=== PATIENT | male | born 1975 | race Caucasian/White ===

== ENCOUNTER 2023-04-11 15:21 | Outpatient (OUT) | payer BC, SELFPAY ==
--- NOTE | 2023-04-11 15:30 | XR_ITS ---
The [address] [address] Patient Name: MICHA PEREZ MRN: [id number] date: 1975 Sex: M Assigned Patient Location: [facility] Current Patient Location: [facility] Accession/Order Number: [id number] Exam Date: 04/11/2023 15:36 Report Date: 04/13/2023 09:17 At the request of: REYNA NEFF Procedure: XR lumbar spine 2-3V EXAMINATION: XR lumbar spine 2-3V HISTORY: Acute Myofascial Strain Lumbar Region S39.012A ; chronic lumbar pain COMPARISON: No relevant comparison available. FINDINGS: BONES: No significant spondylosis, scoliosis, fracture, or visible bony lesion. DISC SPACES: No significant disc height narrowing, subluxation, or endplate abnormality. PARASPINOUS: Negative. No paraspinous abnormality is seen. OTHER: Negative. XR/XR lumbar spine 2-3V IMPRESSION: 1. No acute bone abnormality. 2. No appreciable significant degenerative changes. Electronically authenticated by: MADDIE KENYON Date: 04/13/2023 09:17
== END 2023-04-11 15:22 | disposition home or self-care (01) ==
LOC: RAD 15:25
PROVIDERS: PCP Family Medicine; Visit Provider Family Medicine
DX: S39.012A Strain of muscle, fascia and tendon of lower back, initial encounter (principal)
CPT/HCPCS: 72100

== ENCOUNTER 2023-04-28 06:24 | Emergency (ER) | payer BC, SELFPAY ==
[2023-04-28 06:27] VITALS: BP 138/90; PULSE 85; RESP 16; TEMP 36.6; O2SAT 96; BMI 29.5
--- NOTE | 2023-04-28 06:32 | PC.NURSE ---
Pt reports straining back 3 weeks ago, has been on muscle relaxants and completed imaging that was negative. Pain resolved with rests and medications. Pt strained back last night while reaching for object, cannot manage pain at home.
--- NOTE | 2023-04-28 06:48 | CT_ITS ---
The [address] [address] Patient Name: MICHA PEREZ MRN: [id number] date: 1975 Sex: M Assigned Patient Location: [facility] Current Patient Location: [facility] Accession/Order Number: [id number] Exam Date: 04/28/2023 07:05 Report Date: 04/28/2023 08:02 At the request of: CRISSY WILLOUGHBY Procedure: CT thoracic spine wo con CT scan thoracic spine 04/28/2023. HISTORY: The patient woke up with mid thoracic back pain this morning. The patient injured the lower back 3 weeks ago. COMPARISON: None. TECHNIQUE: Multiple contiguous axial CT images of the thoracic spine were obtained without contrast. Sagittal and coronal reformatted images were made. Dose reduction techniques were achieved by using automated exposure control and/or adjustment of mA and/or kV according to patient size and/or use of iterative reconstruction technique. FINDINGS: No compression fracture or subluxation is seen. There is mild to moderate multilevel discogenic disease at the T4-T5 level through the T11-T12 level with disc space narrowing, osteophyte formation anteriorly and multiple Schmorl's node deformities. No significant disc protrusion, spinal canal stenosis, or foraminal narrowing is seen. There is a mild rightward curvature of the thoracic spine. CT/CT thoracic spine wo con IMPRESSION: 1. No compression fracture, subluxation, or significant spinal canal stenosis of the thoracic spine is seen. 2. Mild to moderate multilevel discogenic disease of the thoracic spine. Electronically authenticated by: DAVID BLACK Date: 04/28/2023 08:02
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
[2023-04-28] MEDS: ONDANSETRON PF 4 MG/2 ML VIAL IV (07:12)
[2023-04-28] MEDS: KETOROLAC TROMETHAMINE 30 MG/ML VIAL IVP (07:12)
[2023-04-28] MEDS: 0.9 % SODIUM CHLORIDE 1,000 ML 1000 ML IV (07:13)
[2023-04-28] MEDS: DIAZEPAM 5 MG/ML - 2 ML INJ SYRINGE IM (07:13)
[2023-04-28] MEDS: MORPHINE SULFATE 4 MG/ML VIAL IV (07:13)
[2023-04-28 07:15] LABS: D Dimer <0.19 mg/L FEU (<=0.59)
[2023-04-28 07:33] VITALS: PULSE 72; O2SAT 96
[2023-04-28 07:50] VITALS: PULSE 73; O2SAT 97
[2023-04-28 08:11] VITALS: PULSE 63; O2SAT 99
--- NOTE | 2023-04-28 08:32 | ED.BACK1 ---
HPI - Back Pain/Injury General Chief Complaint: Back Pain/Injury Stated Complaint: back pain Time Seen by Provider: 04/28/23 06:33 Source: patient Mode of arrival: walk-in History of Present Illness HPI Narrative: the patient was initially seen by Dr. Escobedo and signed out to me after discussing the case with her thoroughly. Please see her full history and physical exam. Related Data Previous Rx's Medication Instructions Recorded acetaminophen 300 mg-codeine 30 mg 1 tab PO Q6H PRN pain #20 tabs 04/28/23 tablet baclofen 10 mg tablet 5 mg PO TID PRN muscle spasm #20 04/28/23 tabs Allergies Allergy/AdvReac Type Severity Reaction Status Date / Time No Known Drug Allergies Allergy Verified 04/28/23 06:30 PFSH PFSH Social History Smoking status: Current some day smoker Exam Constitutional Vital Signs, click to edit/add: Last Vital Signs Temp 97.9 F 04/28/23 06:27 Pulse 63 04/28/23 08:11 Resp 16 04/28/23 06:27 BP 138/90 04/28/23 06:27 Pulse Ox 99 04/28/23 08:11 O2 Del Method Room Air 04/28/23 06:27 Course Vital Signs Vital signs: Vital Signs Temperature 97.9 F 04/28/23 06:27 Pulse Rate 85 04/28/23 06:27 Respiratory Rate 16 04/28/23 06:27 Blood Pressure 138/90 04/28/23 06:27 Pulse Oximetry 96 04/28/23 06:27 Oxygen Delivery Method Room Air 04/28/23 06:27 Temperature 97.9 F 04/28/23 06:27 Pulse Rate 63 04/28/23 08:11 Respiratory Rate 16 04/28/23 06:27 Blood Pressure 138/90 04/28/23 06:27 Pulse Oximetry 99 04/28/23 08:11 Oxygen Delivery Method Room Air 04/28/23 06:27 MDM - Back Pain/Injury MDM Narrative Medical decision making narrative: d-dimer is negative and CT C-spine does not show any acute findings. He is feeling improved and is able to be discharged home. Treatment diagnosis and follow-up were discussed with the patient. Differential Diagnosis Differential diagnosis: Likely thoracic back pain and other (compression fracture, muscle strain) Lab Data Attestation: I reviewed the patient's lab results. Labs: Lab Results 04/28/23 Range/Units 06:54 D-Dimer <0.19 (<=0.59) mg/L FEU Imaging Data CT C-spine: Radiologist's impression: Procedure: CT thoracic spine wo con CT scan thoracic spine 04/28/2023. HISTORY: The patient woke up with mid thoracic back pain this morning. The patient injured the lower back 3 weeks ago. COMPARISON: None. TECHNIQUE: Multiple contiguous axial CT images of the thoracic spine were obtained without contrast. Sagittal and coronal reformatted images were made. Dose reduction techniques were achieved by using automated exposure control and/or adjustment of mA and/or kV according to patient size and/or use of iterative reconstruction technique. FINDINGS: No compression fracture or subluxation is seen. There is mild to moderate multilevel discogenic disease at the T4-T5 level through the T11-T12 level with disc space narrowing, osteophyte formation anteriorly and multiple Schmorl's node deformities. No significant disc protrusion, spinal canal stenosis, or foraminal narrowing is seen. There is a mild rightward curvature of the thoracic spine. IMPRESSION: 1. No compression fracture, subluxation, or significant spinal canal stenosis of the thoracic spine is seen. 2. Mild to moderate multilevel discogenic disease of the thoracic spine. Electronically authenticated by: DAVID BLACK Date: 04/28/2023 08:02 Discharge Plan Discharge Chief Complaint: Back Pain/Injury Clinical Impression: Acute midline thoracic back pain Patient Disposition: Home, Self-Care Time of Disposition Decision: 08:29 Condition: Good Mode of Transportation: Private Vehicle Prescriptions / Home Meds: New acetaminophen-codeine 300-30 mg tablet 1 tab PO Q6H PRN (Reason: pain) Qty: 20 0RF baclofen 10 mg tablet 5 mg PO TID PRN (Reason: muscle spasm) Qty: 20 0RF Instructions: Thoracic Pain (ED), Back Pain (ED) Stand Alone Forms: Portal Instructions Referrals: REYNA NEFF [Primary Care Provider] - 1 week
[2023-04-28 08:40] VITALS: BP 117/79; PULSE 72; RESP 16; O2SAT 97
== END 2023-04-28 08:45 | disposition home or self-care (01) ==
PROVIDERS: Emergency Medicine; Emergency Provider Emergency Medicine; PCP Family Medicine
DX: M54.6 Pain in thoracic spine (principal); F17.210 Nicotine dependence, cigarettes, uncomplicated; Z86.16 Personal history of COVID-19
CPT/HCPCS: 36415; 72128; 85378; 96372; 96374; 96375; 99284

== ENCOUNTER 2023-08-12 18:12 | Emergency (ER) | payer BC, SELFPAY ==
[2023-08-12] VITALS (11 sets, daily range): BP systolic 106–118; BP diastolic 63–73; PULSE 76–96; RESP 8–20; TEMP 37.7; O2SAT 95–100; BMI 29.5
--- OUTSIDE RECORDS SUMMARY | 2023-08-12 18:20 | XMS_ITS | CCD ---
Author Name Unknown Address [address] [place] [address] Organization [facility] Care Team Providers Care Clinical Research Tech Name Role Phone REYNA NEFF Consulting Unavailable REYNA NEFF Attending Unavailable REYNA NEFF Admitting Unavailable REYNA NEFF Primary Care Unavailable [place] Unavailable Unavailable Primary Care Provider UnavailMARJAN Gaitan Attending Unavailable DENVER VICTORIA Attending Unavailable Medications Current Medications Medication Drug Class(es) Dates Sig (Normalized) Sig (Original) methylPREDNISolone 4 mg oral tablet (1 source) Corticosteroid Start: methylPREDNISolone 4 MG as directed Orally Nov, Active Completed/Discontinued Medications Medication Drug Class(es) Dates Sig (Normalized) Sig (Original) acetaminophen 300 mg / codeine phosphate 30 mg oral tablet (1 source) Opioid Agonist Start: 04-28-2023 acetaminophen-codei ne (TYLENOL-COD #3) 300-30 mg per tablet baclofen 5 mg oral tablet (1 source) gamma-Aminobutyric Acid-ergic Agonist Start: 04-28-2023 End: 05-02-2023 baclofen 5 mg tablet cyclobenzaprine hydrochloride 5 mg oral tablet (1 source) Muscle Relaxant Start: 05-02-2023 take 1 tablet by mouth at bedtime as needed cyclobenzaprine (FLEXERIL) 5 mg tablet Indications: Acute thoracic back pain, unspecified back pain laterality Take 1 tablet by mouth at bedtime as needed. 5 tablet 0 05/02/2023 Active Comment on above: Take 1 tablet by quentin th at bedtime as needed. triamcinolone acetonide 10 mg/ml injectable suspension (1 source) Corticosteroid Start: 12-17-2021 Kenalog Nov, 60 mg Problems Active Problems Problem Classification Problem Date Documented Date Episodic/Chronic Disorders of lipid metabolism (1 source) Hyperlipidemia; Translations: [Hyperlipidemia] Chronic Headache; including migraine (1 source) Headache; including migraine; Translations: [HEADACHE UNSPECIFIED] Onset: 05-01-2020 Immunizations and screening for infectious disease (3 sources) Contact with and (suspected) exposure to other viral communicable diseases; Translations: [CONTCT EXPS OTH VIRL COMMUNICABL DZ] Onset: 04-29-2020 Episodic Malaise and fatigue (1 source) Other fatigue; Translations: [OTHER FATIGUE] Onset: 05-01-2020 Episodic Other connective tissue disease (1 source) Pain in limb; Translations: [Leg pain] Episodic Other lower respiratory disease (1 source) Cough; Translations: [COUGH] Onset: 05-01-2020 Episodic Other nervous system disorders (1 source) Paresthesia; Translations: [Paresthesia] Episodic Other nervous system disorders (1 source) Trigeminal nerve disorder; Translations: [Other specified trigeminal nerve disorders] Episodic Other upper respiratory infections (2 sources) Acute pharyngitis, unspecified; Translations: [Acute pharyngitis] Onset: 05-01-2020 Episodic Spondylosis; intervertebral disc disorders; other back problems (1 source) Degeneration of thoracic intervertebral disc; Translations: [Other intervertebral disc degeneration, thoracic region] 05-02-2023 Chronic Spondylosis; intervertebral disc disorders; other back problems (3 sources) Low back pain; Translations: [Lumbar pain] 05-02-2023 Episodic Unclassified (1 source) COVID-19; Translations: [COVID-19] Onset: 05-01-2020 Unclassified (1 source) Sinus drainage; Translations: [Sinus drainage] Past or Other Problems Problem Classification Problem Date Documented Da te Episodic/Chronic Allergic reactions (1 source) Allergic contact dermatitis due to plants, except food Onset: 12-17-2021 Resolved: 12-17-2021 Episodic Results Test Name Value Interpretation Reference Range Maren Rodrigues 05-02-2023 CNOV Office Visit ([facility]NMM[facility]) ---- WES SANDOVAL ([id number]) 1975 M Date Time Provider Department 05/02/23 11:20 AM MARJAN SANTOS [facility]NMMN During your visit today, we recorded the following information about you: Pulse Respiration Blood pressure Weight 86/minute 18/minute 134/86 93.6 kg Height 1.753 m Marjan Santos MD 05/02/2023 12:35 PM Signed [facility] Low Back Pain - Acute (0 - 6 weeks) Initial Exam SUBJECTIVE HISTORY OF PRESENT ILLNESS: Wes Sandoval is a 47 year old male who presents with a chief complaint of thoracic and low back pain and is seen at patient request. present. Chronic intermittent low back pain would not last long apx the last 10 years. 3-4 weeks ago (apx mid March) low back spasms and locked up at patient garage placing hitch. Called PCP, given baclofen and medrol dose pack. Notes took a week later felt better [place] back to normal. Notes then woke up midnight with pain shoulder blade level and could not sleep-no comfortable position. Went to ED 04/[address] scan completed and notes told has degenerative changes-no fracture. ED gave medications. Some pain of the buttock. Denies LE pain. Notes H/o R buttock and lateral high numbness-denies below the knee and into the groin. Constant for 13 yeas. Denies ever having LE pain with it. With prolonged sitting notes penile numbness and resolves once gets up. Present since apx mid summer 2022. Denies bowel/bladder incontinence and saddle numbness. Denies anterior radiating pain of the thoracic region. PAIN EVALUATION 05/02/2023 1051 Pain Level: 3 Pain Location: Back-Middle Description: Aching;Sharp Duration Amount of Time: 3 Duration Units: Weeks Frequency: Intermittent Intervention/Comfor t measure: Medication;Cold;Exe rcise;Heat Aggravating Factors: sitting and bending Alleviating Factors: Medications Pain Ratio: mid back>low back>R thigh numbness. Prior Therapy: Currently taking tylenol #3 (2 doses) and motrin 800 mg (last dose was yesterday). Prior taking tylenol ES once every 6 hours but stopped with tylenol #3. Prior medications: Baclofen too sleepy took 3 doses ED--Toradol IM, tramadol [place] flexeril helped more-would like script Denies PT or injections Some chirorpactic Social History Tobacco Use Smoking status: Every Day Types: Cigarettes Smokeless tobacco: Never No family history on file. Allergies-NKDA, CURRENT MEDICATIONS: baclofen 5 mg tablet acetaminophen-codei ne (TYLENOL-COD #3) 300-30 mg per tablet REVIEW OF SYSTEMS: Denies fevers, unintentional weight loss, and cancer history. OBJECTIVE: PHYSICAL EXAM BP 134/86 Pulse 86 Resp 18 Ht 175.3 cm (5' 9 ) Wt 93.6 kg (206 lb 4.8 oz) SpO2 98% BMI 30.47 kg/m? General: Pleasant individual in NAD Mental Status: Oriented to person place and time. Displays appropriate mood and affect. GAIT: Gait is normal. Gross Motor: Toe walking, heel walking, tandem gait are normal. Strength Testing: Bilateral upper and lower extremity strength is normal and symmetric. Neuro: Bilateral upper and lower extremity coordination and muscle stretch reflexes are physiologic and symmetric except for decreased R patella. Plantar response are downgoing. Negative izaguirre's. No clonus Spine Range of Motion: limited lumbar ROM with flexion Palpation: Inspection and palpatory examination of the spine upper/lower extremities is unremarkable. Except for tenderness apx T8-9 area Peripheral Vascular: No obvious extremity swelling in all 4 extremities. Appearance of Skin: Skin inspection of the trunk, bilateral upper and lower extremities is unremarkable. Data Review: Patient my chart results-reports reviewed. Thoracic CT and lumbar x-ray. Lumbar x-ray notes unremarkable. Thoracic CT scan-degenerative and schmorl's node-no severe stenosis per report. ASSESSMENT/PLAN Acute mid back pain since apx 04/28. Has thoracic DDD. Denies radiating symptoms currently. Thoracic CT report reviewed-per report no significant stenosis. No images. Acute on chronic low back>>chronic R thigh numbness-suspect degenerative changes. Suspect h/o chronic R sensory lumbar radiculopathy (?L3/4) given exam. Denies LE pain. Management options reviewed Forward the images for review. Pending review consider PT trial versus consideration of advanced imaging. D/c baclofen, trial flexeril as needed, short term. Advised to d/c with sedation, potential side effects reviewed. Disp: 5. Chronic intermittent penile numbness only with sitting since apx summer 2022-denies saddle numbness, bowel and bladder incontinence-recomm end f/u with PCP to best address-defer need of urology consult to PCP as suspect this is more peripheral. Contact office to confirm receipt of images. Red flags and myelopathy symptoms reviewed in detail as well as ne (more content not included)... Normal [facility] METABOLIC PANE [place] 11-20-2021 Albumin [Mass/Vol] 4.3 g/dL Normal 3.6-5.1 [facility] Comment on above: Performed By: #### 1 023, 7600 #### [facility] [place] [address] [employer] Machine Operator: Yg Farrar MD Albumin/Globulin [Mass ratio] 1.7 {ratio} Normal 1.0-2.5 [facility] Comment on above: Performed By: #### 1 023, 0 #### [facility] [place] [address] [employer] Operator: Yg Farrar MD ALP [Catalytic activity/Vol] 65 U/L Normal 36-130 [facility] Comment on above: Performed By: #### 1 0231, 7600 #### [facility] [place] [address] [employer] Machine Operator: Yg Farrar MD ALT [Catalytic activity/Vol] 43 U/L Normal 9-46 [facility] Comment on above: Performed By: #### 1 023, 7600 #### [facility] [place] [address] [employer] Operator: Yg Farrar MD AST [Catalytic activity/Vol] 25 U/L Normal 10-40 [facility] Comment on above: Performed By: #### 1 023, 7600 #### [facility] [place] [address] [employer] Operator: Yg Farrar MD Bilirubin [Mass/Vol] 0.3 mg/dL Normal 0.2-1.2 [facility] Comment on above: Performed By: #### 1 0231, 7600 #### [facility] [address], [address] [place] [address] [employer] Machine Operator: Yg Farrar MD BUN/CREATININE RATIO NOT APPLICABLE Normal 6-22 [facility] Comment on above: Performed By: #### 1 0231, 7600 #### [facility] of [address], [address] [place] [address] [employer] Operator: Yg Farrar MD Calcium [Mass/Vol] 9.3 mg/dL Normal 8.6-10.3 [facility] Comment on above: Performed By: #### 1 0231, 7600 #### [facility] of [address], [address] [place] [address] [employer] Machine Operator: Yg Farrar MD Chloride [Moles/Vol] 104 mmol/L Normal 98-110 [facility] Comment on above: Performed By: #### 1 0231, 7600 #### [facility] [address], [address] [place] [address] [employer] Operator: Yg Farrar MD CO2 [Moles/Vol] 29 mmol/L Normal 20-32 [facility] Comment on above: Performed By: #### 1 0231, 7600 #### [facility] of [address], [address] [place] [address] [employer] Operator: Yg Farrar MD Creatinine [Mass/Vol] 0.88 mg/dL Normal 0.60-1.35 [facility] Comment on above: Performed By: #### 1 0231, 7600 #### [facility] [address], [address] [place] [address] [employer] Machine Operator: Yg Farrar MD eGFR NON-AFR. BELGIAN 104 mL/min/1.73m2 Normal > OR = 60 [facility] Comment on above: Performed By: #### 1 0231, 7600 #### [facility] [address], [address] [place] [address] [employer] Operator: Yg Farrar MD GFR/1.73 sq M.predicted among blacks MDRD (S/P/Bld) [Vol rate/Area] 120 mL/min/{1.73_m2} Normal > OR = 60 [facility] Comment on above: Performed By: #### 1 0231, 7600 #### [facility] [address], [address] [place] [address] [employer] Machine Operator: Yg Farrar MD Globulin (S) [Mass/Vol] 2.5 g/dL Normal 1.9-3.7 [facility] Comment on above: Performed By: #### 1 0231, 7600 #### [facility] [place] [address] [employer] Operator: Yg Farrar MD Glucose [Mass/Vol] 96 mg/dL Normal 65-139 [facility] Comment on above: Result Comment: Non-fasting reference interval Performed By: #### 1 0231, 7600 #### [facility] [address], [address] [place] [address] [employer] Machine Operator: Yg Farrar MD Potassium [Moles/Vol] 4.1 mmol/L Normal 3.5-5.3 [facility] Comment on above: Performed By: #### 1 0231, 7600 #### [facility] [place] [address] [employer] Machine Operator: Yg Farrar MD Protein [Mass/Vol] 6.8 g/dL Normal 6.1-8.1 [facility] Comment on above: Performed By: #### 1 0231, 7600 #### [facility] [place] [address] [employer] Machine Operator: Yg Farrar MD Sodium [Moles/Vol] 141 mmol/L Normal 135-146 [facility] Comment on above: Performed By: #### 1 0231, 7600 #### [facility] [place] [address] [employer] Machine Operator: Yg Farrar MD Urea nitrogen [Mass/Vol] 10 mg/dL Normal 7-25 [facility] Comment on above: Performed By: #### 1 0231, 7600 #### [facility] [address], [address] [place] [address] [employer] Machine Operator: Yg Farrar MD LIPID PANEL, [facility] 06-0 Cholesterol [Mass/Vol] 173 mg/dL Normal <200 [facility] Comment on above: Order Comment: FASTI NG:NO FASTING: NO Performed By: #### 1 0231, 7600 #### [facility] [address], [address] [place] [address] [employer] Machine Operator: Yg Farrar MD Cholesterol in HDL [Mass/Vol] 48 mg/dL Normal > OR = 40 [facility] Comment on above: Order Comment: FASTI NG:NO FASTING: NO Performed By: #### 1 0231, 0 #### [facility] [address], [address] [place] [address] [employer] Machine Operator: Yg Farrar MD Cholesterol in LDL [Mass/Vol] 102 mg/dL High [facility] Comment on above: Order Comment: FASTI NG:NO FASTING: NO Result Comment: Refe rence range: <100 Desirable range <100 mg/dL for primary prevention; <70 mg/dL for patients with CHD or diabetic patients with > or = 2 CHD risk factors. LDL-C is now calculated using the Leonidas-Yvette calculation, which is a validated novel method providing better accuracy than the Friedewald equation in the estimation of LDL-C. Leonidas RIVERA et al. STEVE. 2013;310(19): 4301-0508 (http://education.GoGarden.Ship & Duck/faq/VEG184) Performed By: #### 1 0231, 0 #### [facility] [address], [address] [place] [address] [employer] Machine Operator: Yg Farrar MD Cholesterol.total/C holesterol in HDL [Mass ratio] 3.6 {ratio} Normal <5.0 [facility] Comment on above: Order Comment: FASTI NG:NO FASTING: NO Performed By: #### 1 0231, 7600 #### [facility] [address], [address] [place] [address] [employer] Machine Operator: Yg Farrar MD NON HDL CHOLESTEROL 125 mg/dL (calc) Normal <130 [facility] Comment on above: Order Comment: FASTI NG:NO FASTING: NO Result Comment: For patients with diabetes plus 1 major ASCVD risk factor, treating to a non-HDL-C goal of <100 mg/dL (LDL-C of <70 mg/dL) is considered a therapeutic option. Performed By: #### 1 0231, 7600 #### [facility] [address], [address] [place] [address] [employer] Machine Operator: Yg Farrar MD Triglyceride [Mass/Vol] 135 mg/dL Normal <150 [facility] Comment on above: Order Comment: FASTI NG:NO FASTING: NO Performed By: #### 1 0231, 7600 #### [facility] [address], [address] [place] [address] [employer] Machine Operator: Yg Farrar MD COVID-19 PCRon 05-01-2020 SARS-CoV-2, BILLY Detected Abnormal Not Detected [facility] Comment on above: Result Comment: This nucleic acid amplification test was developed and its performance characteristics determined by [facility]. Nucleic acid amplification tests include PCR and TMA. This test has not been FDA cleared or approved. This test has been authorized by FDA under an Emergency Use Authorization (EUA). This test is only authorized for the duration of time the declaration that circumstances exist justifying the authorization of the emergency use of in vitro diagnostic tests for detection of SARS-CoV-2 virus and/or diagnosis of COVID-19 infection under section 564(b)(1) of the Act, 21 U.S.C. 360bbb-3(b) (1), unless the authorization is terminated or revoked sooner. When diagnostic testing is negative, the possibility of a false negative result should be considered in the context of a patient's recent exposures and the presence of clinical signs and symptoms consistent with COVID-19. An individual without symptoms of COVID-19 and who is not shedding SARS-CoV-2 virus would expect to have a negative (not detected) result in this assay. Performed By: #### C VDPCR #### [facility] [address] [place] [id number] Jennifer Escobedo Vital Signs Date Time Vital Sign Value Performing Clinician Facility 05-02-2023 10:52-0500 Body height 175.3 cm Marjan Santos MD Work Phone: [facility] 05-02-2023 10:52-0500 Body weight 93.58 kg Marjan Santos MD Work Phone: [facility] 05-02-2023 10:52-0500 Diastolic blood pressure 86 mm[Hg] Marjan Santos MD Work Phone: [facility] 05-02-2023 10:52-0500 Heart rate 86 /min Marjan Santos MD Work Phone: [facility] 05-02-2023 10:52-0500 Respiratory rate 18 /min Marjan Santos MD Work Phone: [facility] 05-02-2023 10:52-0500 SaO2% (BldA) [Mass fraction] 98 % Marjan Santos MD Work Phone: [facility] 05-02-2023 10:52-0500 Systolic blood pressure 134 mm[Hg] Marjan Santos MD Work Phone: [facility] 12-17-2021 11:20-0400 Body height [place] Other [facility] 12-17-2021 11:20-0400 Body mass index (BMI) [Ratio] 27.46 kg/m2 [place] Other [facility] 12-17-2021 11:20-0400 Body weight 84.37 kg [place] Other [facility] Other 12-17-2021 11:20-0400 Respiratory rate 18 /min [place] Other [facility] Other Encounters Encounter Date Encounter Type Care Provider Facility Start: 05-06-2023 End: 05-06-2023 ambulatory DENVER VICTORIA Not Available Start: 05-02-2023 End: 05-02-2023 ambulatory MARJAN SANTOS Facility:[facility] Start: 05-02-2023 End: 05-02-2023 Patient encounter procedure Marjan Santos MD Work Phone: [facility] Comment on above: Acute thoracic back pain, unspecified back pain laterality (Primary Dx); DDD (degenerative disc disease), thoracic; Chronic low back pain, unspecified back pain laterality, unspecified whether sciatica present Start: 12-17-2021 End: 12-17-2021 ambulatory [place] Other [facility] Start: 12-17-2021 Office outpatient ne w 20 minutes [place] [facility] Start: 04-29-2020 End: 04-30-2020 Patient encounter procedure REYNA NEFF Facility: Plan of Treatment Date Care Activity Detail Author Start: 02-18-2023 Influenza vaccination Influenza Vacc ine (#1) [facility] Start: 06-20-2022 Depression Assessment Depression Ass essment [facility] Start: 2021 Cologuard (FIT-DNA) Cologuard (FIT-D NA) [facility] Start: 2021 Colonoscopy Colonoscopy [facility] Start: 2021 Colorectal Cancer Screening Colorectal Cancer Screening [facility] Start: [address] Colonography [facility] Start: 2021 Diabetes Screening Diabetes Screenin g [facility] Start: 2021 Fecal Occult Blood Fecal Occult Bloo d [facility] Start: 2021 [facility] Start: 2011 Lipid 1996 panel - S gabriella or Plasma Lipid Screening [facility] Start: 1995 Urine microalbumin profile DTa P,Tdap,Td Vaccine (1 - Tdap) [facility] Start: 1994 Hepatitis C Screening Hepatitis C Sc reening [facility] Start: 1994 HIV Screening HIV Screening [facility] Start: 1982 Pneumococcal vaccination Pneum ococcal Vaccine (1 - PCV) [facility] Start: 01-27-1977 Covid-19 Vaccine (#1) Covid-19 Vacci ne (#1) [facility] Start: 1975 Hepatitis B Vaccine (1 of 3 - 3-dose series) Hepatitis B Vaccine (1 of 3 - 3-dose series) [facility] Payers Date Payer Category Payer Unknown [employer] PPO OOS [id number] 2022-Present [phone] [address] [place] [address] PPO [id number] 2022 Unknown [id number] 1975 Unknown [id number] 1975 Unknown [id number] 1958 Unknown [id number] Social History Date Type Detail Facility Start: 05-02-2023 Sex Assigned At [facility] Start: 05-02-2023 Tobacco smoking status NHIS Smokes tobacco daily [facility] History of tobacco use Cigarette Smoker [facility] Start: 05-02-2023 Tobacco use and exposure Smokeless tobacco non-user [facility] Start: 05-02-2023 History of Social function [facility] National Score (1-10 0), lower number is lower risk 78 [facility] Start: 1975 Sex Assigned At Male [facility] Start: 05-02-2023 Gender identity Identifies as male gender (finding) [facility] Start: 05-02-2023 Sexual orientation Heterosexual (finding) [facility] Progress note 05-02-2023 Note Date & Type Note Facility 05-02-2023 Note HNO ID: [id number] Author: Marjan Santos MD Service: ? Author Type: Physician Type: Progress Notes Filed: 05/02/2023 12:35 PM Note Text: [facility] Low Back Pain - Acute (0 - 6 weeks) Initial Exam SUBJECTIVE HISTORY OF PRESENT ILLNESS: Wes Sandoval is a 47 year old male who presents with a chief complaint of thoracic and low back pain and is seen at patient request. present. Chronic intermittent low back pain would not last long apx the last 10 years. 3-4 weeks ago (apx mid March) low back spasms and locked up at patient garage placing hitch. Called PCP, given baclofen and medrol dose pack. Notes took a week later felt better [place] back to normal. Notes then woke up midnight with pain shoulder blade level and could not sleep-no comfortable position. Went to ED 04/[address] scan completed and notes told has degenerative changes-no fracture. ED gave medications. Some pain of the buttock. Denies LE pain. Notes H/o R buttock and lateral high numbness-denies below the knee and into the groin. Constant for 13 yeas. Denies ever having LE pain with it. With prolonged sitting notes penile numbness and resolves once gets up. Present since apx mid summer 2022. Denies bowel/bladder incontinence and saddle numbness. Denies anterior radiating pain of the thoracic region. PAIN EVALUATION 05/02/2023 1051 Pain Level: 3 Pain Location: Back-Middle Description: Aching;Sharp Duration Amount of Time: 3 Duration Units: Weeks Frequency: Intermittent Intervention/Comfort measure: Medication;Cold;Exercise;Heat Aggravating Factors: sitting and bending Alleviating Factors: Medications Pain Ratio: mid back>low back>R thigh numbness. Prior Therapy: Currently taking tylenol #3 (2 doses) and motrin 800 mg (last dose was yesterday). Prior taking tylenol ES once every 6 hours but stopped with tylenol #3. Prior medications: Baclofen too sleepy took 3 doses ED--Toradol IM, tramadol [place] flexeril helped more-would like script Denies PT or injections Some chirorpactic Social History Tobacco Use Smoking status: Every Day Types: Cigarettes Smokeless tobacco: Never No family history on file. Allergies-NKDA, CURRENT MEDICATIONS: baclofen 5 mg tablet acetaminophen-codeine (TYLENOL-COD #3) 300-30 mg per tablet REVIEW OF SYSTEMS: Denies fevers, unintentional weight loss, and cancer history. OBJECTIVE: PHYSICAL EXAM BP 134/86 Pulse 86 Resp 18 Ht 175.3 cm (5' 9 ) Wt 93.6 kg (206 lb 4.8 oz) SpO2 98% BMI 30.47 kg/m? General: Pleasant individual in NAD Mental Status: Oriented to person place and time. Displays appropriate mood and affect. GAIT: Gait is normal. Gross Motor: Toe walking, heel walking, tandem gait are normal. Strength Testing: Bilateral upper and lower extremity strength is normal and symmetric. Neuro: Bilateral upper and lower extremity coordination and muscle stretch reflexes are physiologic and symmetric except for decreased R patella. Plantar response are downgoing. Negative izaguirre's. No clonus Spine Range of Motion: limited lumbar ROM with flexion Palpation: Inspection and palpatory examination of the spine upper/lower extremities is unremarkable. Except for tenderness apx T8-9 area Peripheral Vascular: No obvious extremity swelling in all 4 extremities. Appearance of Skin: Skin inspection of the trunk, bilateral upper and lower extremities is unremarkable. Data Review: Patient my chart results-reports reviewed. Thoracic CT and lumbar x-ray. Lumbar x-ray notes unremarkable. Thoracic CT scan-degenerative and schmorl's node-no severe stenosis per report. ASSESSMENT/PLAN Acute mid back pain since apx 04/28. Has thoracic DDD. Denies radiating symptoms currently. Thoracic CT report reviewed-per report no significant stenosis. No images. Acute on chronic low back>>chronic R thigh numbness-suspect degenerative changes. Suspect h/o chronic R sensory lumbar radiculopathy (?L3/4) given exam. Denies LE pain. Management options reviewed Forward the images for review. Pending review consider PT trial versus consideration of advanced imaging. D/c baclofen, trial flexeril as needed, short term. Advised to d/c with sedation, potential side effects reviewed. Disp: 5. Chronic intermittent penile numbness only with sitting since apx summer 2022-denies saddle numbness, bowel and bladder incontinence-recommend f/u with PCP to best address-defer need of urology consult to PCP as suspect this is more peripheral. Contact office to confirm receipt of images. Red flags and myelopathy symptoms reviewed in detail as well as need to return to ED if were to experience. Tagreed M Danielle, MD The above plan and management options were discussed at length with patient. Patient is in agreement with the above and verbalized understanding. Patient instructed to call/seek urgent medical care with worsening of sy (more content not included)... [facility] Instructions 05-02-2023 Patient Instructions Note Date & Type Note Facility 05-02-2023 Instructions Marjan Santos MD - 05/02/2023 12:17 PM EST Images from the original note were not included. Please forward thoracic CT and lumbar xray images for review. Please contact office once images sent to confirm receipt. Acute Low Back Pain Overview: Eighty to 90 percent of people in the [place] will experience an episode of back pain at some time during their lives. Acute back pain refers to a brief episode of pain that comes on suddenly and lasts less than four weeks. Typically, pain improves within 2 weeks. The use of imaging (X-ray and MRI) is not recommended in most cases of acute low back pain. The exact cause of low back pain is often not identified but most people recover with simple treatment within a few weeks. Treatment: Acute back pain is almost always successfully treated with conservative (non-surgical) measures. Prolonged bed rest is not recommended and generally should not exceed 24-48 hours. Gradually resuming normal activities as soon as you are able is best. Your physician may recommend simple exercises to further speed your recovery. Assuming good posture while standing, sitting, sleeping, and driving may also help alleviate acute low back pain. Over the counter, non-prescription, pain relievers such as acetaminophen and ibuprofen may be used in your treatment of pain. Opioid or narcotic medications are not recommended, and you should refrain from the use of such medications. In fact, use of these drugs may prolong the amount of time it takes for you to recover. Follow Up: See your health care provider if: You experience fever The pain does not improve within 2 weeks or worsen The pain progressively moves from your back into your leg(s) You notice progressive weakness in your legs You experience problems in your balance or walking You notice difficulty controlling your bowels or bladder MD Wes Perez, [id number] May 02, 2023 Marjan Santos MD documented in this encounter [facility] History of Present illness Narrative 05-02-2023 Marjan Santos MD - 05/02/2023 11:39 AM EST Note Date & Type Note Facility 05-02-2023 History of Presen t illness Narrative [facility] Low Back Pain - Acute (0 - 6 weeks) Initial Exam SUBJECTIVE HISTORY OF PRESENT ILLNESS: Wes Sandoval is a 47 year old male who presents with a chief complaint of thoracic and low back pain and is seen at patient request. present. Chronic intermittent low back pain would not last long apx the last 10 years. 3-4 weeks ago (apx mid March) low back spasms and locked up at patient garage placing hitch. Called PCP, given baclofen and medrol dose pack. Notes took a week later felt better [place] back to normal. Notes then woke up midnight with pain shoulder blade level and could not sleep-no comfortable position. Went to ED 04/[address] scan completed and notes told has degenerative changes-no fracture. ED gave medications. Some pain of the buttock. Denies LE pain. Notes H/o R buttock and lateral high numbness-denies below the knee and into the groin. Constant for 13 yeas. Denies ever having LE pain with it. With prolonged sitting notes penile numbness and resolves once gets up. Present since apx mid summer 2022. Denies bowel/bladder incontinence and saddle numbness. Denies anterior radiating pain of the thoracic region. PAIN EVALUATION 05/02/2023 1051 Pain Level: 3 Pain Location: Back-Middle Description: Aching;Sharp Duration Amount of Time: 3 Duration Units: Weeks Frequency: Intermittent Intervention/Comfort measure: Medication;Cold;Exercise;Heat Aggravating Factors: sitting and bending Alleviating Factors: Medications Pain Ratio: mid back>low back>R thigh numbness. Prior Therapy: Currently taking tylenol #3 (2 doses) and motrin 800 mg (last dose was yesterday). Prior taking tylenol ES once every 6 hours but stopped with tylenol #3. Prior medications: Baclofen too sleepy took 3 doses ED--Toradol IM, tramadol [place] flexeril helped more-would like script Denies PT or injections Some chirorpactic Social History Tobacco Use Smoking status: Every Day Types: Cigarettes Smokeless tobacco: Never No family history on file. Allergies-NKDA, CURRENT MEDICATIONS: baclofen 5 mg tablet acetaminophen-codeine (TYLENOL-COD #3) 300-30 mg per tablet REVIEW OF SYSTEMS: Denies fevers, unintentional weight loss, and cancer history. OBJECTIVE: PHYSICAL EXAM BP 134/86 Pulse 86 Resp 18 Ht 175.3 cm (5' 9 ) Wt 93.6 kg (206 lb 4.8 oz) SpO2 98% BMI 30.47 kg/m General: Pleasant individual in NAD Mental Status: Oriented to person place and time. Displays appropriate mood and affect. GAIT: Gait is normal. Gross Motor: Toe walking, heel walking, tandem gait are normal. Strength Testing: Bilateral upper and lower extremity strength is normal and symmetric. Neuro: Bilateral upper and lower extremity coordination and muscle stretch reflexes are physiologic and symmetric except for decreased R patella. Plantar response are downgoing. Negative izaguirre's. No clonus Spine Range of Motion: limited lumbar ROM with flexion Palpation: Inspection and palpatory examination of the spine upper/lower extremities is unremarkable. Except for tenderness apx T8-9 area Peripheral Vascular: No obvious extremity swelling in all 4 extremities. Appearance of Skin: Skin inspection of the trunk, bilateral upper and lower extremities is unremarkable. Data Review: Patient my chart results-reports reviewed. Thoracic CT and lumbar x-ray. Lumbar x-ray notes unremarkable. Thoracic CT scan-degenerative and schmorl's node-no severe stenosis per report. ASSESSMENT/PLAN Acute mid back pain since apx 04/28. Has thoracic DDD. Denies radiating symptoms currently. Thoracic CT report reviewed-per report no significant stenosis. No images. Acute on chronic low back>>chronic R thigh numbness-suspect degenerative changes. Suspect h/o chronic R sensory lumbar radiculopathy (?L3/4) given exam. Denies LE pain. Management options reviewed Forward the images for review. Pending review consider PT trial versus consideration of advanced imaging. D/c baclofen, trial flexeril as needed, short term. Advised to d/c with sedation, potential side effects reviewed. Disp: 5. Chronic intermittent penile numbness only with sitting since apx summer 2022-denies saddle numbness, bowel and bladder incontinence-recommend f/u with PCP to best address-defer need of urology consult to PCP as suspect this is more peripheral. Contact office to confirm receipt of images. Red flags and myelopathy symptoms reviewed in detail as well as need to return to ED if were to experience. Marjan Santos MD The above plan and management options were discussed at length with patient. Patient is in agreement with the above and verbalized understanding. Patient instructed to call/seek urgent medical care with worsening of symptoms or change of neurological status. Patient provided with office contact. SIGNATURE: Marjan Santos MD PATIENT NAME: Wes Sandoval DATE: May 02, 2023 TIME: 11:39 AM documented in this encounter [facility] Evaluation note 12-17-2021 Note Date & Type Note Facility 12-17-2021 Evaluation note Encounter Date Diagnosis Assessment Notes Nov, Poison johnnie dermatitis (ICD-10 - L23.7) Pt received 60mg IM Kenalog in office today. Pt tolerated well. Performed by Carloz Bobby CMA. Pt to take meds as prescribed -- start tomorrow. No other nsaids while on steroid. Pt to avoid contact with allergen. Avoid hot showers as it draws out rash. Pt to use topical calamine lotion or benadryl cream prn for itching. Otc benadryl prn. Pt to f/u with pcp as needed for persistent or worsening symptoms. Pt understood and agreed to treatment plan. [facility] Other History general Narrative - Reported 10-09-2010 Note Date & Type Note Facility 10-09-2010 History general N arrative - Reported Type Medical History [place] [facility] [place] Cat Scan Brain, Inte rnal Auditory Canal, Paransal Sinuses [facility] Other Evaluation note Note Date & Type Note Facility Evaluation note Diagnosis Acute thoracic back pain, unspecified back pain laterality- Primary DDD (degenerative disc disease), thoracic Degeneration of thoracic or thoracolumbar intervertebral disc Chronic low back pain, unspecified back pain laterality, unspecified whether sciatica present documented in this encounter [facility] Summary Purpose Family History No Family History Records FoundNo Family History Records FoundNo Family History Records FoundNo Family History Records Found Advance Directives No Advanced Directives Records FoundNo Advanced Directives Records FoundNo Advanced Directives Records FoundNo Advanced Directives Records Found Additional Source Comments (unrecognized sect ion and content) No Status Records FoundNo Status Records FoundNo Status Records FoundNo Status Records Found INFORMATION SOURCE (unrecogn ized section and content) DATE CREATED AUTHOR 05/01/2020 [facility] DATE CREATED AUTHOR AUTHOR'S ORGANIZ ATION 11/20/2021 [facility] DATE CREATED AUTHOR AUTHOR'S ORGANIZ ATION 05/03/2023 [facility] DATE CREATED AUTHOR AUTHOR'S ORGANIZ ATION 05/08/2023 [facility] EPIC REASON FOR VISIT (unrecogniz ed section and content) Reason Comments New Patient Source Comments (unrecognize d section and content) In the event this informatio n is protected by the Federal Confidentiality of Alcohol and Drug Abuse Patient Records regulations: The Federal rules restrict any use of the information to criminally investigate or prosecute any alcohol or drug abuse patient.[facility] FOR RECORDS PERTAINING TO PATIENTS WHO ARE OR HAVE BEEN ENROLLED IN A CHEMICAL DEPENDENCY/SUBSTANCEABUSE PROGRAM, SOME INFORMATION MAY BE OMITTED. This clinical summary was aggregated from multiple sources. Caution should be exercised in using it in the provision of clinical care. This summary normalizes information from multiple sources, and as a consequence, information in this document may materially change the coding, format and clinical context of patient data. In addition, data may be omitted in some cases. CLINICAL DECISIONS SHOULD BE BASED ON THE PRIMARY CLINICAL RECORDS. [facility]. provides no warranty or guarantee of the accuracy or completeness of information in this document.
--- NOTE | 2023-08-12 18:28 | ED.GENADUL1 ---
HPI - General Adult General Chief complaint: Dizziness Stated complaint: URTI, Fever, Syncope Time Seen by Provider: 08/12/23 18:27 Source: patient Mode of arrival: walk-in Limitations: no limitations History of Present Illness HPI narrative: Patient is a 48-year-old male who is presenting to the ER today with chief complaint of flulike symptoms. Patient states he has had sinus congestion, sore throat, weakness, fatigue, intermittently lightheaded since Tuesday. No sick contacts that patient is aware of. 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 Patient's has had no flulike symptoms besides a mild cough at home. Patient has no headache or neck pain. No chest pain. Patient does feel short of breath. Patient is short winded when he is speaking several sentence at the same time. Tonight patient was going to get into the bath, patient was feeling short of breath. Patient got out of the bathtub, was drying himself off, felt lightheaded, dizzy, near syncopal. Patient did not have a syncopal episode. Patient's was not home yet, patient called EMS. EMS checked patient's blood sugar, vital signs and patient's vital signs within normal limits. Patient's arrived home, she drove patient to the hospital instead of EMS. Patient has no cardiac history. Patient takes no prescribed medications. Patient has been using Motrin, Tylenol and vitamins this week. No other acute complaints. No vomiting, mild diarrhea yesterday and today. Patient has no recent traveling, no long plane rides, bus trips or car rides of the state or country in the last month or 2. Patient works in a factory. No sick contacts that he is aware of. All systems are negative except as noted/marked. All systems reviewed and otherwise negative. Nurses note and vital signs reviewed and patient is not hypoxic. General: The patient appears well and in no apparent distress. Patient is resting comfortably on cart. Patient is not toxic, lethargic, or listless. Patient is short winded after speaking several sentences. Skin: Warm, dry, slightly pale noted. There is no rash noted. No petechiae, purpura. Head: Normocephalic, atraumatic Eye: Normal conjunctiva, no drainage, EOMI. PERRL Ears, Nose, Mouth, and Throat: oral mucosa is moist. Patient has clear drainage noted to the posterior pharynx. No unilateral swelling. No petechiae, purpura, airways patent. Nares patent. Mouth without vesicles. Cardiovascular: Regular Rate and Rhythm, no murmur, gallop, rub Respiratory: Patient is in no distress, no accessory muscle use, lungs are clear to auscultation, no wheezing, rales or rhonchi Back: non-tender, no CVA tenderness bilaterally to percussion. No CT LS midline pain GI: no tenderness to palpation, no masses appreciated. No rebound, guarding, or rigidity noted. No distention Musculoskeletal: Patient has full range of motion of all of the extremities, no motor, sensory, or focal neurological deficits Neurological: A&O x4, normal speech Psychiatric: Cooperative Related Data Previous Rx's Medication Instructions Recorded albuterol sulfate 90 mcg/actuation 2 inh inhalation Q4H PRN shortness 08/12/23 aerosol inhaler of breath or wheezing 7 days #8.5 grams ondansetron 4 mg disintegrating 4 mg PO Q4H PRN nausea and 08/12/23 tablet vomiting 3 days #6 tabs Allergies Allergy/AdvReac Type Severity Reaction Status Date / Time No Known Drug Allergies Allergy Verified 08/12/23 18:17 PFSH PFSH Social History Smoking status: Current every day smoker Exam Constitutional Vital Signs, click to edit/add: Last Vital Signs Temp 99.9 F 08/12/23 18:18 Pulse 96 H 08/12/23 18:18 Resp 14 08/12/23 18:18 BP 118/63 08/12/23 18:18 Pulse Ox 97 08/12/23 18:39 O2 Del Method Room Air 08/12/23 18:39 Course Vital Signs Vital signs: Vital Signs Temperature 99.9 F 08/12/23 18:18 Pulse Rate 96 H 08/12/23 18:18 Respiratory Rate 14 08/12/23 18:18 Blood Pressure 118/63 08/12/23 18:18 Pulse Oximetry 96 08/12/23 18:18 Oxygen Delivery Method Room Air 08/12/23 18:18 Temperature 99.9 F 08/12/23 18:18 Pulse Rate 96 H 08/12/23 18:18 Respiratory Rate 14 08/12/23 18:18 Blood Pressure 118/63 08/12/23 18:18 Pulse Oximetry 97 08/12/23 18:39 Oxygen Delivery Method Room Air 08/12/23 18:39 Medical Decision Making Medical Records Medical records narrative: Patient had IV established, patient had lab work done, patient is getting 1 L of IV fluid along with a breathing treatment. Patient has been sick since Tuesday, patient was offered to have influenza or COVID swabs, patient has declined. Patient is aware by the performing the swabs, it does not change our treatment or care for him. Patient agrees to no swabs. 1899 patient care will be transitioned to Dr. Barnett for reevaluation and disposition of the patient. ECG Data Attestation: I personally reviewed and interpreted this ECG as follows: (EKG interpretation. Normal sinus rhythm at 91 beats a minute. Normal axis deviation. Artifact noted. No acute ST elevation, no acute ectopy. QTc of 355. Nonspecific ST changes) Discharge Plan Discharge Chief Complaint: Dizziness Clinical Impression: Sinus congestion, Dyspnea, Flu-like symptoms, Near syncope Patient Disposition: Home, Self-Care Condition: Fair Prescriptions / Home Meds: New albuterol sulfate 90 mcg/actuation HFA aerosol inhaler 2 inh inhalation Q4H PRN (Reason: shortness of breath or wheezing) 7 Days Qty: 8.5 0RF ondansetron 4 mg tablet,disintegrating 4 mg PO Q4H PRN (Reason: nausea and vomiting) 3 Days Qty: 6 0RF Additional Instructions: Increase fluids at home, Gatorade, Powerade, or water. Alternate using DayQuil, NyQuil, and Flonase. At Mucinex as well as needed. Alternate Tylenol and Motrin every 4 hours to help with fever control, body aches or joint pain. Use [id number] vitamin C, vitamin D3, and zinc to help fight infection and help with her immune system. Stand Alone Forms: Portal Instructions Referrals: REYNA NEFF [Primary Care Provider] - 1 week
--- NOTE | 2023-08-12 18:40 | ECG_ITS ---
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
--- NOTE | 2023-08-12 18:40 | XR_ITS ---
The [address] [address] Patient Name: MICHA PEREZ MRN: [id number] date: 1975 Sex: M Assigned Patient Location: ED.MAIN Current Patient Location: ER Accession/Order Number: [id number] Exam Date: 08/12/2023 19:20 Report Date: 08/12/2023 19:31 At the request of: NAVEED MARR Procedure: XR chest 2V EXAM: XR chest 2V HISTORY: sob COMPARISON: None. TECHNIQUE: Upright PA and lateral chest x-ray FINDINGS: The heart is not enlarged and the vasculature is not distended. No acute infiltrate, effusion or pneumothorax is identified. The osseous structures are grossly intact. XR/XR chest 2V IMPRESSION: No acute infiltrate or evidence of cardiac decompensation. Direct comparison with a previous study may be helpful in confirming the chronicity of these findings. Electronically authenticated by: MARCELINO GOINS Date: 08/12/2023 19:31
[2023-08-12] MEDS: IPRATROPIUM/ALBUTEROL SULFATE 3 ML AMPUL.NEB IH (18:56)
[2023-08-12 18:57] LABS: Basophils Percent Auto 0.3 % (0.2-2.0); Eosinophils Percent Auto 0.5 % (0.9-7.0); Hemoglobin 14.5 g/dL (14.0-18.0); Immature Granulocytes Abs Auto 0.01 10^3/uL (0.00-0.03); Immature Granulocytes Pct Auto 0.2 % (0.0-0.5); Lymphocytes Absolute Auto 1.1 10^3/uL (1.2-3.8); Lymphocytes Percent Auto 18.8 % (20.5-60.0); Mean Corpuscular Hemoglobin 29.4 pg (25.9-34.0); Mean Corpuscular Volume 89.1 fL (80.0-94.0); Mean Platelet Volume 10.4 fL (9.5-13.5); Monocytes Absolute Auto 0.5 10^3/uL (0.3-0.8); Monocytes Percent Auto 7.8 % (1.7-12.0); Neutrophils Absolute Auto 4.3 10^3/uL (1.4-6.5); Neutrophils Percent Auto 72.4 % (43.0-75.0); Platelet Count 214 10^3/uL (150-450); Red Blood Count 4.94 10^6/uL (4.70-6.10); Red Cell Distribution Width 12.9 % (11.0-15.0); White Blood Count 5.9 10^3/uL (4.0-11.0)
[2023-08-12] MEDS: 0.9 % SODIUM CHLORIDE 1,000 ML 1000 ML IV (19:01)
[2023-08-12 19:19] LABS: Influenza Virus A Antigen Negative; Influenza Virus B Antigen Positive; Internal Control Within Normal Limits; SARS-CoV-2 Ag NEGATIVE (NEGATIVE)
[2023-08-12 19:22] LABS: Anion Gap 14.8; BUN Creatinine Ratio 11.9; Calcium 8.7 mg/dL (8.5-10.1); Carbon Dioxide 26.1 mmol/L (21.0-32.0); Chloride 106 mmol/L (98-107); Estimated GFR (African America >60 (>=60); Estimated GFR (Non-African Ame >60 (>=60); Glucose 97 mg/dL (74-106); Potassium 3.9 mmol/L (3.5-5.1); Sodium 143 mmol/L (136-145); Troponin I High Sensitivity 5.3 pg/mL (4.0-76.1)
[2023-08-12] MEDS: ACETAMINOPHEN 500 MG TABLET 1000 MG PO (19:57)
== END 2023-08-12 20:06 | disposition home or self-care (01) ==
PROVIDERS: Emergency Medicine; Emergency Provider Emergency Medicine; PCP Family Medicine
DX: J10.1 Influenza due to other identified influenza virus with other respiratory manifestations (principal); R55 Syncope and collapse; F17.210 Nicotine dependence, cigarettes, uncomplicated; R42 Dizziness and giddiness
CPT/HCPCS: 36415; 71046; 80048; 84484; 85025; 87804; 87811; 93005; 94640; 96360; 99285